=== PATIENT | male | born 1955 | race Hispanic/Latino ===

== ENCOUNTER 2018-05-28 08:13 | Emergency (ER) | payer OTHER ==
[2018-05-28 09:18] LABS: #Basophils 0.1 thou/uL (0.0-0.2); #Eosinphils 0.2 thou/uL (0.0-0.7); #Monocytes 0.5 thou/uL (0.11-0.59); #Neutrophils 4.5 thou/uL (1.40-6.50); %Eosinophils 3.5 % (0.0-10.0); %Lymphocytes 16.5 % (21.0-51.0); %Monocytes 8.4 % (0.0-10.0); %Neutrophils 70.7 % (42.0-75.0); Hemoglobin 14.8 g/dL (14.0-18.0); Mean Corpuscular HGB CONC 32.6 g/dL (32.0-36.0); Mean Corpuscular Hemoglobin 31.7 pg (27.0-31.0); Mean Corpuscular Volume 97.3 fL (78.0-98.0); Mean Platelet Volume 5.1 fL (7.4-10.4); Platelet Count 303 thou/uL (130-400); RBC Distribution Width 12.1 % (11.5-14.5); Red Blood Cell (RBC) Count 4.67 mill/uL (4.70-6.10); White Blood Cell (WBC) Count 6.3 thou/uL (4.8-10.8)
[2018-05-28 09:45] LABS: ALT (SGPT) 32 U/L (8-55); AST (SGOT) 34 U/L (5-34); Albumin 4.5 g/dL (3.4-4.8); Alkaline Phosphatase 56 U/L (40-150); Anion Gap 15 mmol/L (10-20); BUN (Urea Nitrogen) 6 mg/dL (8.4-25.7); Bilirubin, Total 0.4 mg/dL (0.2-1.2); Calc. Creatinine Clearance 0 mL/min (70-130); Calcium 9.4 mg/dL (7.8-10.44); Carbon Dioxide 25 mmol/L (23-31); Chloride 102 mmol/L (98-107); Estimated GFR-MDRD Greater than 90; Globulin 3.6 g/dL (2.4-3.5); Glucose 100 mg/dL (80-115); Lipase 58 U/L (8-78); Potassium 4.5 mmol/L (3.5-5.1); Protein, Total 8.1 g/dL (5.8-8.1); Sodium 137 mmol/L (136-145)
== END 2018-05-28 10:20 | disposition home or self-care (01) ==
LOC: MADERS 08:13
DX: R10.9 Unspecified abdominal pain (principal); I10 Essential (primary) hypertension; F17.210 Nicotine dependence, cigarettes, uncomplicated
CPT/HCPCS: 80053; 83690; 85025; 99284

== ENCOUNTER 2019-04-23 16:57 | Emergency (ER) | payer SELFPAY ==
[2019-04-23] MEDS ORDERED: HYDROcodone/Acetaminophen 5/325 mg Tablet ONE (17:25)
[2019-04-23] MEDS ORDERED: Acetaminophen 325 MG TAB ONE (17:26)
[2019-04-23] MEDS ORDERED: Ibuprofen 800 MG TAB ONE (17:26)
--- NOTE | 2019-04-23 17:49 | RAD ---
Exam: Chest one view Right RIBS 3 views HISTORY: Status post fall. Pain. Comparison: Chest radiograph 06/09/2010 FINDINGS: Chest one view: Normal cardiac silhouette. Lungs and pleural spaces are clear. No masses or consolida tion. No pneumothorax or osseous abnormalities. Right RIBS 3 views: No fracture. No cortical irregularity. No periosteal reaction IMPRESSION: 1. No evidence of a rib fracture 2. No acute cardiopulmonary process.
== END 2019-04-23 18:27 | disposition home or self-care (01) ==
LOC: MADERS 16:57
DX: S22.41XA Multiple fractures of ribs, right side, initial encounter for closed fracture (principal); F17.210 Nicotine dependence, cigarettes, uncomplicated; W18.2XXA Fall in (into) shower or empty bathtub, initial encounter

== ENCOUNTER 2021-07-12 19:11 | Emergency (ER) | payer SELFPAY ==
[2021-07-12] MEDS ORDERED: HYDROcodone/Acetaminophen 5/325 mg Tablet ONE (20:52)
== END 2021-07-12 21:00 | disposition home or self-care (01) ==
LOC: MADERS 19:11
DX: S22.32XA Fracture of one rib, left side, initial encounter for closed fracture (principal); F17.210 Nicotine dependence, cigarettes, uncomplicated; W17.89XA Other fall from one level to another, initial encounter

== ENCOUNTER 2022-07-16 12:31 | Emergency (ER) | payer SELFPAY | END 2022-07-16 15:04 | disposition home or self-care (01) | LOC: MADERS 12:31 | DX: S42.012A Anterior displaced fracture of sternal end of left clavicle, initial encounter for closed fracture (principal); S20.212A Contusion of left front wall of thorax, initial encounter; F17.210 Nicotine dependence, cigarettes, uncomplicated; W18.30XA Fall on same level, unspecified, initial encounter; Y93.01 Activity, walking, marching and hiking ==